=== PATIENT | female | born 1935 | race Caucasian/White ===

== ENCOUNTER 2019-01-20 14:47 | Outpatient (CLI) | payer MEDICARE, SELFPAY ==
[2019-01-20 15:19] LABS: HCT 38.5 % (36.0-46.0); HGB 12.2 g/dL (12.0-15.5); Mean Corp. HGB Concentration 31.7 g/dL (32.0-36.0); Platelet Count 202 x1000/uL (130-400); RBC 3.93 m/cumm (4.00-5.20); RBC Distribution Width 12.9 % (11.7-14.6); White Blood Cell Count 5.54 k/cumm (4.4-10.8)
[2019-01-20 15:40] LABS: Hemoglobin A1C 5.7 % (4.5-6.2)
[2019-01-20 16:32] LABS: ALT 20 U/L (12-78); AST 16 U/L (15-37); Albumin 3.5 g/dL (3.4-5.0); Alkaline Phosphatase 93 U/L (46-116); Anion Gap 5.9 mmol/L (3-11); BUN 26 mg/dL (7-18); Bilirubin, Total 0.2 mg/dL (0.2-1.0); CO2 32.1 mmol/L (21.0-32.0); CREATININE 0.78 mg/dL (0.55-1.02); Calcium 9.4 mg/dL (8.5-10.1); Chloride 103 mmol/L (98-107); Glucose 92 mg/dL (70-100); Magnesium 1.7 mg/dL (1.8-2.4); Potassium 4.1 mmol/L (3.5-5.1); Sodium 141 mmol/L (136-145); TSH (W/Ref FT4) 3.26 uIU/mL (0.358-3.74); Total Protein 7.2 g/dL (6.4-8.2); Vitamin B12 1550 pg/mL (193-986)
== END 2019-01-20 15:07 ==
PROVIDERS: PCP Nurse Practitioner; Visit Provider Nurse Practitioner
DX: R20.0 Anesthesia of skin (principal); Z83.3 Family history of diabetes mellitus; I10 Essential (primary) hypertension; R45.0 Nervousness; R79.89 Other specified abnormal findings of blood chemistry
CPT/HCPCS: 36415; 80053; 85027; 82607; 83036; 83735; 84443

== ENCOUNTER 2019-05-28 12:40 | Outpatient (REF) | payer MEDICARE, SELFPAY | END 2019-05-28 13:00 | LOC: LBN 12:40 | PROVIDERS: PCP Nurse Practitioner; Visit Provider Nurse Practitioner | DX: R82.90 Unspecified abnormal findings in urine (principal) | CPT/HCPCS: 87086 ==

== ENCOUNTER 2022-03-07 09:02 | Outpatient (CLI) | payer OTHER, SELFPAY ==
--- NOTE | 2022-03-07 09:00 | RT.EKG_ITS ---
APPROVED REPORT Exam: Resting ECG Reason for Exam: irreg heart rate Patient Location: O HR:71 bpm ECG Measurements Heart Rate 71 AXIS RI 148 P 63 QRSd 95 QRS 60 QT 437 T 10 QTc 477 Conclusion Sinus rhythm...normal P axis, V-rate 60- 99 Ventricular bigeminy...bigeminy string>4 w/ V complexes
== END 2022-03-07 09:03 | disposition home or self-care (01) ==
LOC: DI.KIM 09:03
PROVIDERS: PCP Nurse Practitioner; Visit Provider Nurse Practitioner
DX: I49.9 Cardiac arrhythmia, unspecified (principal)
CPT/HCPCS: 93010

== ENCOUNTER → 2024-05-11 09:29 | Outpatient (BNVA) | payer OTHER, SELFPAY | PROVIDERS: PCP Nurse Practitioner; Referring Provider Nurse Practitioner; Visit Provider Podiatrist | DX: M77.42 Metatarsalgia, left foot (principal); B35.1 Tinea unguium; L84 Corns and callosities; M67.01 Short Achilles tendon (acquired), right ankle; M67.02 Short Achilles tendon (acquired), left ankle; M20.41 Other hammer toe(s) (acquired), right foot; M20.42 Other hammer toe(s) (acquired), left foot | CPT/HCPCS: 17110; 99214 ==

== ENCOUNTER → 2024-09-07 09:00 | Outpatient (BNVA) | payer OTHER, SELFPAY | PROVIDERS: PCP Nurse Practitioner; Referring Provider Nurse Practitioner; Visit Provider Podiatrist | DX: B35.1 Tinea unguium (principal); L84 Corns and callosities; M20.41 Other hammer toe(s) (acquired), right foot; M20.42 Other hammer toe(s) (acquired), left foot; Q82.8 Other specified congenital malformations of skin; M79.671 Pain in right foot; M79.672 Pain in left foot | CPT/HCPCS: 11056; 17110 ==

== ENCOUNTER 2024-12-07 10:58 | Outpatient (CLI) | payer MEDICARE, SELFPAY ==
--- NOTE | 2024-12-07 09:30 | DI.RAD_ITS ---
Exam(s) XR CHEST 2V PA LATERAL EXAM: XR CHEST 2V PA LATERAL CLINICAL HISTORY: Wheeze, R06.2, personal h/o pneumona, Z87.01, r/o PNA TECHNIQUE: 2D digital imaging was performed of the chest. Two images were obtained. PA and lateral views were obtained. COMPARISON: CR CHEST 2 VIEWS PA,LAT from 09/17/2017 FINDINGS: MEDIASTINUM: Normal. HEART: Normal. PULMONARY VASCULATURE: Normal. LUNGS: The lungs are hyperinflated with flattened diaphragms suggesting underlying COPD. There are i ncreased lung markings in the right lung base medially which appear to lie in the lower lobe suspicio us for pneumonia. The lungs are otherwise clear. PLEURAL SPACE: No pleural effusion or pneumothorax. BONE:Within normal limits for the patient's age. OTHER FINDINGS:Normal. IMPRESSION: Small infiltrate seen in the right lower lobe suspicious for pneumonia. Atelectasis cannot be exclud ed. DATA REPOSITORY: RADIATION DOSE DELIVERED:
== END 2024-12-07 11:18 ==
LOC: DI 10:59
PROVIDERS: PCP Nurse Practitioner; Visit Provider Nurse Practitioner Adult Health
DX: R91.8 Other nonspecific abnormal finding of lung field (principal); Z87.01 Personal history of pneumonia (recurrent)
CPT/HCPCS: 71046

== ENCOUNTER 2024-12-07 11:18 | Outpatient (REF) | payer MEDICARE, SELFPAY ==
[2024-12-07 15:45] LABS: Bilirubin Negative (Negative); Blood Trace-intact (Negative); Clarity Clear (Clear); Glucose Negative (Negative); Ketones Negative (Negative); Leukocyte Esterase Negative (Negative); Nitrite Negative (Negative); Specific Gravity <= 1.005 (1.005-1.025); Urobilinogen 0.2 mg/dL (Up to 0.2)
[2024-12-07 16:02] LABS: Bacteria Rare HPF (Negative); C & S Indicated? No; Casts Negative LPF (Negative); Crystals Negative HPF (Negative); Epithelial Cells Negative HPF (Negative); Mucus Negative (Negative); Other Cells Negative (Negative); RBC 0-2 HPF (0-2); WBC Negative HPF (0-5)
== END 2024-12-07 11:19 | disposition home or self-care (01) ==
LOC: LBN 11:18
PROVIDERS: PCP Nurse Practitioner; Visit Provider Nurse Practitioner Adult Health
DX: R10.9 Unspecified abdominal pain (principal); R06.2 Wheezing; Z87.01 Personal history of pneumonia (recurrent); J18.9 Pneumonia, unspecified organism; H67.2 Otitis media in diseases classified elsewhere, left ear; H72.92 Unspecified perforation of tympanic membrane, left ear; H66.92 Otitis media, unspecified, left ear
CPT/HCPCS: 81003; 81015

== ENCOUNTER → 2024-12-09 07:54 | Outpatient (BNVA) | payer MEDICARE, SELFPAY | PROVIDERS: PCP Nurse Practitioner; Visit Provider Podiatrist | DX: B35.1 Tinea unguium (principal); M20.41 Other hammer toe(s) (acquired), right foot; M20.42 Other hammer toe(s) (acquired), left foot; L84 Corns and callosities; B07.0 Plantar wart | CPT/HCPCS: 17110 ==

== ENCOUNTER 2025-01-25 02:10 | Outpatient (CLI) | payer MEDICARE, SELFPAY ==
--- NOTE | 2025-01-25 07:00 | DI.RAD_ITS ---
Exam(s) XR CHEST 2V PA LATERAL EXAM: XR CHEST 2V PA LATERAL CLINICAL HISTORY: interval F/U--ensure resolution,rll pneumonia,j18.9 TECHNIQUE: 2D digital imaging was performed. Two views. COMPARISON: CR CHEST 2 VIEWS PA,LAT from 09/09/2015 CR CHEST 2 VIEWS PA,LAT from 09/17/2017 CR XR CHEST 2V PA LATERAL from 12/07/2024 FINDINGS: HEART: Normal size. Aorta: Tortuous. PULMONARY VASCULATURE: Normal. MEDIASTINUM: Unremarkable. LUNGS: Increased densities noted at the bilateral lung bases may be chronic and were present on prior exams. Hyperinflation. PLEURAL SPACE: No pleural effusion or pneumothorax. BONE:Unremarkable for age. SOFT TISSUES: Unremarkable. IMPRESSION: No acute abnormality. Increased densities at the medial lung bases appears to represent scarring. DATA REPOSITORY: RADIATION DOSE DELIVERED:
== END 2025-01-25 02:30 ==
LOC: DI 02:11
PROVIDERS: PCP Nurse Practitioner; Visit Provider Nurse Practitioner Adult Health
DX: J18.9 Pneumonia, unspecified organism (principal)
CPT/HCPCS: 71046

== ENCOUNTER 2025-03-24 08:59 | Outpatient (CLI) | payer MEDICARE, SELFPAY ==
[2025-03-24 09:15] LABS: Abs Immature Grans 0.01 10^3/uL (0.0-0.06); Absolute Basophil Count 0.05 10^3/uL (0.0-0.2); Absolute Eosinophil Count 0.06 10^3/uL (0.0-0.7); Absolute Lymphocyte Count 1.42 10^3/uL (1.2-3.4); Absolute Monocyte Count 0.33 10^3/uL (0.1-0.8); Absolute Neutrophil Count 2.74 10^3/uL (1.2-6.7); Basophils % 1.1 %; Eosinophils % 1.3 %; HCT 40.6 % (36.0-46.0); HGB 12.9 g/dL (11.2-15.7); Immature Grans % 0.2 %; Lymphocytes % 30.8 %; MCHC 31.8 % (32.0-36.0); MCV 98 fL (80-95); MPV 10.5 fL (8.0-11.0); Monocytes % 7.2 %; Neutrophils % 59.4 %; Platelet Count 194 10^3/uL (130-400); RBC 4.16 10^6/uL (3.93-5.22); RDW 13.2 % (11.7-14.6); WBC 4.61 10^3/uL (4.4-10.8)
[2025-03-24 09:16] LABS: Bilirubin Negative (Negative); Blood Small (Negative); Clarity Clear (Clear); Glucose Negative (Negative); Ketones Negative (Negative); Leukocyte Esterase Negative (Negative); Nitrite Negative (Negative); Urobilinogen 0.2 mg/dL (Up to 0.2)
[2025-03-24 09:25] LABS: Bacteria Rare HPF (Negative); C & S Indicated? No; Casts Negative LPF (Negative); Crystals Negative HPF (Negative); Epithelial Cells Rare HPF (Negative); Mucus Trace (Negative); WBC 0-2 HPF (0-5)
[2025-03-24 09:53] LABS: Anion Gap 4.1 mmol/L (3-11); BUN 16 mg/dL (7-18); CO2 32.9 mmol/L (21.0-32.0); CREATININE 0.8 mg/dL (0.55-1.02); Calcium 9.2 mg/dL (8.5-10.1); Calculated LDL 111 mg/dL (<100); Chloride 102 mmol/L (98-107); Cholesterol 206 mg/dL (<200); Estimated GFR 70.83 (mL/min/1.73m2); Glucose 64 mg/dL (74-106); HDL Cholesterol 88 mg/dL (>or=50); Hemoglobin A1C 5.6 % (<5.7); Potassium 4.1 mmol/L (3.5-5.1); Sodium 139 mmol/L (136-145); TSH 2.88 uIU/mL (0.36-3.74); Triglyceride 36 mg/dL (<150)
== END 2025-03-24 09:00 | disposition home or self-care (01) ==
LOC: LBO 08:59
PROVIDERS: PCP Nurse Practitioner; Visit Provider Family Medicine
DX: J18.9 Pneumonia, unspecified organism (principal); Z13.9 Encounter for screening, unspecified; E78.5 Hyperlipidemia, unspecified; R03.0 Elevated blood-pressure reading, without diagnosis of hypertension; R73.9 Hyperglycemia, unspecified; E03.8 Other specified hypothyroidism
CPT/HCPCS: 36415; 80048; 80061; 81003; 81015; 83036; 84443; 85025

== ENCOUNTER → 2025-04-20 09:14 | Outpatient (BNVA) | payer MEDICARE, SELFPAY | PROVIDERS: PCP Nurse Practitioner; Referring Provider Nurse Practitioner; Visit Provider Podiatrist | DX: L97.512 Non-pressure chronic ulcer of other part of right foot with fat layer exposed (principal); B35.1 Tinea unguium; L84 Corns and callosities; B07.0 Plantar wart; M20.41 Other hammer toe(s) (acquired), right foot; M20.42 Other hammer toe(s) (acquired), left foot | CPT/HCPCS: 99214; 17110 ==

== ENCOUNTER → 2025-05-17 12:50 | Outpatient (BNVA) | payer MEDICARE, SELFPAY | PROVIDERS: PCP Nurse Practitioner; Referring Provider Nurse Practitioner; Visit Provider Podiatrist | DX: L97.512 Non-pressure chronic ulcer of other part of right foot with fat layer exposed (principal); B35.1 Tinea unguium; M20.41 Other hammer toe(s) (acquired), right foot; M20.42 Other hammer toe(s) (acquired), left foot; L84 Corns and callosities; B07.0 Plantar wart; Q82.8 Other specified congenital malformations of skin | CPT/HCPCS: 97597; 17110 ==

== ENCOUNTER → 2025-08-09 09:59 | Outpatient (BNVA) | payer MEDICARE, SELFPAY | PROVIDERS: PCP Nurse Practitioner; Referring Provider Nurse Practitioner; Visit Provider Podiatrist | DX: L60.3 Nail dystrophy (principal); B35.1 Tinea unguium; M79.675 Pain in left toe(s); L84 Corns and callosities; L60.2 Onychogryphosis; L85.8 Other specified epidermal thickening; R23.4 Changes in skin texture; L65.9 Nonscarring hair loss, unspecified; L60.8 Other nail disorders | CPT/HCPCS: 11720 ==